=== PATIENT | male | born 1970 | race Caucasian/White ===

== ENCOUNTER → 2020-08-10 | Outpatient (CLI) | payer OTHER ==
[~2020-08-10] MED LIST: ALBUTEROL2.5 MG/3 M INH; ASPIRIN EC325 MG PO; DECADRON4 MG PO; DOXYCYCLINE MO100 MG PO; ENDOCET 7.5-321 EACH PO
[2020-08-10 13:19] LABS: HEMOGLOBIN 16.3 gm/dl (14.0-17.5); RED BLOOD COUNT 5.45 M/UL (4.20-5.50); WHITE BLOOD COUNT 7.2 K/UL (4.5-11.0)
[2020-08-10 13:33] LABS: BUN/CREATININE RATIO 17 (0-10)
== END ==
LOC: EDSTATUS 12:00 → OPSV2 12:00
PROVIDERS: Orthopaedic Surgery
DX: Z01.818 Encounter for other preprocedural examination (principal); M17.12 Unilateral primary osteoarthritis, left knee
CPT/HCPCS: 36415; 80048; 85027; 87081; 93005

== ENCOUNTER → 2020-08-22 | Outpatient (CLI) | payer OTHER ==
[2020-08-22 11:39] LABS: BUN/CREATININE RATIO 11 (0-10)
== END ==
LOC: LAB 10:15
PROVIDERS: Orthopaedic Surgery
DX: Z01.812 Encounter for preprocedural laboratory examination (principal)
CPT/HCPCS: 36415; 80048; 86850; 86900; 86901

== ENCOUNTER 2020-08-23 07:03 | Day surgery (SDC) | payer OTHER ==
[~2020-08-23] VITALS: Ht 195.6 cm; Wt 152.4 kg
[2020-08-23] MEDS ORDERED: ASPIRIN EC325 MG PO (11:18)
[2020-08-23] MEDS ORDERED: ENDOCET 7.5-321 EACH PO (11:18)
[2020-08-24 03:47] LABS: HEMOGLOBIN 13.1 gm/dl (14.0-17.5); RED BLOOD COUNT 4.54 M/UL (4.20-5.50)
[2020-08-24 04:06] LABS: BUN/CREATININE RATIO 18 (0-10)
[2020-08-25] MEDS ORDERED: DECADRON4 MG PO (17:22)
[2020-08-25] MEDS ORDERED: DOXYCYCLINE MO100 MG PO (17:22)
== END 2020-08-24 14:50 | disposition home or self-care (01) ==
LOC: OR 07:03 → EDSTATUS 11:30 → M/S 15:44 → OR 08-24 14:50
PROVIDERS: Orthopaedic Surgery
PROC: 3E0T3BZ Introduction of Anesthetic Agent into Peripheral Nerves and Plexi, Percutaneous Approach (ICD-10-PCS; 2020-08-23)
PROC: 3E0T3BZ Introduction of Anesthetic Agent into Peripheral Nerves and Plexi, Percutaneous Approach (ICD-10-PCS; 2020-08-23)
PROC: 0SRD0J9 Replacement of Left Knee Joint with Synthetic Substitute, Cemented, Open Approach (ICD-10-PCS; principal; 2020-08-23 11:30)
DX: M17.12 Unilateral primary osteoarthritis, left knee (principal); U07.1 COVID-19; G89.18 Other acute postprocedural pain; G47.30 Sleep apnea, unspecified; K21.9 Gastro-esophageal reflux disease without esophagitis; E66.01 Morbid (severe) obesity due to excess calories; Z68.41 Body mass index [BMI] 40.0-44.9, adult; Z88.0 Allergy status to penicillin
CPT/HCPCS: 36415; 73560; 80048; 85027; 97110-GP-CQ; 97116-GP-CQ; 97161; 97166; 97535; C1776; J0171; J0690; J1100; J1200; J1885; J2250; J2270; J2704; J2795; J3370; J3475; J7120; U0002

== ENCOUNTER 2020-08-25 10:43 | Emergency (ER) | payer OTHER ==
[~2020-08-25] VITALS: Ht 198.1 cm; Wt 145.1 kg
[~2020-08-25 10:43] MED LIST changes: -ALBUTEROL2.5 MG/3 M INH; -DECADRON4 MG PO; -DOXYCYCLINE MO100 MG PO
[2020-08-25 12:23] LABS: HEMOGLOBIN 12.7 gm/dl (14.0-17.5); RED BLOOD COUNT 4.34 M/UL (4.20-5.50); WHITE BLOOD COUNT 10.5 K/UL (4.5-11.0)
[2020-08-25 12:51] LABS: BUN/CREATININE RATIO 23 (0-10)
[2020-08-25] MEDS ORDERED: DOXYCYCLINE MO100 MG PO (17:22)
[2020-08-25] MEDS ORDERED: DECADRON4 MG PO (17:22)
== END 2020-08-25 19:00 | disposition home or self-care (01) ==
LOC: ER1 10:43
PROVIDERS: Nurse Practitioner
DX: U07.1 COVID-19 (principal); J12.82 Pneumonia due to coronavirus disease 2019; R42 Dizziness and giddiness; Z96.652 Presence of left artificial knee joint
CPT/HCPCS: 71045; 80053; 82550; 82553; 83605; 83735; 83874; 84484; 85025; 85379; 93005; 99284; J2270; J2405; Q9967

== ENCOUNTER 2020-09-01 05:51 | Emergency (ER) | payer OTHER ==
[~2020-09-01 05:51] MED LIST changes: +DECADRON4 MG PO; +DOXYCYCLINE MO100 MG PO
[2020-09-01 06:56] LABS: RED BLOOD COUNT 4.36 M/UL (4.20-5.50); WHITE BLOOD COUNT 8.4 K/UL (4.5-11.0)
[2020-09-01 07:06] LABS: BUN/CREATININE RATIO 23 (0-10)
[2020-09-01] MEDS ORDERED: ALBUTEROL2.5 MG/3 M INH (07:56)
== END 2020-09-01 10:21 | disposition home or self-care (01) ==
LOC: ER1 05:51
PROVIDERS: Emergency Medicine
DX: U07.1 COVID-19 (principal); J12.82 Pneumonia due to coronavirus disease 2019; E11.9 Type 2 diabetes mellitus without complications; F17.210 Nicotine dependence, cigarettes, uncomplicated
CPT/HCPCS: 71045; 80053; 82550; 82553; 84484; 85025; 87040; 93005; 99285; Q9967